=== PATIENT | female | born 1965 | race Two or more races ===

== ENCOUNTER 2019-05-03 19:43 | Inpatient (IN) | payer OTHER ==
[~2019-05-03] VITALS: Ht 154.9 cm; Wt 68.6 kg
[2019-05-03] MEDS ORDERED: ASPIRIN 81 MG TAB.CHEW PO ONE (20:00)
[2019-05-03] MEDS ORDERED: ASPIRIN 81 MG TAB.CHEW ONE (20:18)
[2019-05-03 20:19] LABS: BASOPHILS % (AUTO) 0.1 % (0.0-2.0); HEMATOCRIT 29.5 % (31.2-41.9); HEMOGLOBIN 9.4 g/dL (10.9-14.3); LYMPHOCYTES # (AUTO) 0.5 K/uL (20.0-40.0); LYMPHOCYTES % (AUTO) 4.5 % (20.5-51.5); MEAN CORPUSCULAR HEMOGLOBIN 25.5 uug (24.7-32.8); MEAN CORPUSCULAR HGB CONC 32 g/dL (32.3-35.6); MEAN CORPUSCULAR VOLUME 80.4 fL (75.5-95.3); MONOCYTES # (AUTO) 0.6 K/uL (2.0-10.0); MONOCYTES % (AUTO) 5.3 % (0.0-11.0); NEUTROPHILS # (AUTO) 9.3 K/uL (1.8-8.9); NEUTROPHILS % (AUTO) 90.1 % (38.5-71.5); PLATELET COUNT (AUTO) 131 K/uL (179-408); RED BLOOD CELL COUNT(AUTO) 3.68 MIL/uL (3.63-4.92); WHITE BLOOD COUNT (AUTO) 10.3 K/uL (3.8-11.8)
[2019-05-03 20:30] LABS: CREATININE 0.6 mg/dL (0.6-1.3); POTASSIUM 3.9 mmol/L (3.5-5.1)
[2019-05-03 20:42] LABS: BILIRUBIN,DIRECT 0.1 mg/dL (0.0-0.2); BILIRUBIN,TOTAL 0.5 mg/dL (0.2-1.0); TOTAL PROTEIN, SERUM 4.7 g/dL (6.4-8.2)
[2019-05-03] MEDS ORDERED: IV NORMAL SALINE 1000 ML BAG IV ONE (22:00)
[2019-05-03 23:15] LABS: HEMATOCRIT 27.7 % (31.2-41.9); HEMOGLOBIN 8.8 g/dL (10.9-14.3)
[2019-05-03] MEDS ORDERED: ONDANSETRON 4 MG/2 ML VIAL IV ONE (23:30)
[2019-05-03] MEDS ORDERED: HYDROMORPHONE 1 MG/1 ML DISP.SYRIN IV ONE (23:30)
[2019-05-03] MEDS ORDERED: HYDROMORPHONE 1 MG/1 ML DISP.SYRIN ONE (23:31)
[2019-05-03] MEDS ORDERED: ONDANSETRON 4 MG/2 ML VIAL ONE (23:31)
[2019-05-04] MEDS ORDERED: ZOLPIDEM 5 MG TABLET PO PRN (01:00)
[2019-05-04] MEDS ORDERED: Z GUARD REMEDY PASTE 57 GM TUBE TOP PRN (01:00)
[2019-05-04] MEDS ORDERED: MAGNESIUM HYDROXIDE 30 ML LIQUID UDC PO PRN (01:00)
[2019-05-04] MEDS ORDERED: IV NS 1000 ML 1,000 ML IV PRN (01:00)
[2019-05-04 01:10] VITALS: BP 99/56
[2019-05-04] MEDS: HYDROCODONE/APAP 5-325MG TABLET PO PRN ×3 (02:15→21:44)
[2019-05-04 04:00] VITALS: BP 90/46
[2019-05-04 06:20] LABS: HEMATOCRIT 24.5 % (31.2-41.9); HEMOGLOBIN 7.8 g/dL (10.9-14.3); LYMPHOCYTES # (AUTO) 0.5 K/uL (20.0-40.0); LYMPHOCYTES % (AUTO) 5.8 % (20.5-51.5); MEAN CORPUSCULAR HEMOGLOBIN 25.1 uug (24.7-32.8); MEAN CORPUSCULAR HGB CONC 32 g/dL (32.3-35.6); MEAN CORPUSCULAR VOLUME 78.9 fL (75.5-95.3); MONOCYTES # (AUTO) 0.7 K/uL (2.0-10.0); NEUTROPHILS # (AUTO) 7.5 K/uL (1.8-8.9); NEUTROPHILS % (AUTO) 86.2 % (38.5-71.5); PLATELET COUNT (AUTO) 137 K/uL (179-408); RED BLOOD CELL COUNT(AUTO) 3.11 MIL/uL (3.63-4.92); WHITE BLOOD COUNT (AUTO) 8.7 K/uL (3.8-11.8)
[2019-05-04 06:57] LABS: CREATININE 0.7 mg/dL (0.6-1.3); PHOSPHOROUS 3.9 mg/dL (2.5-4.9); POTASSIUM 3.8 mmol/L (3.5-5.1)
[2019-05-04 07:04] LABS: MAGNESIUM 1.2 mg/dL (1.8-2.4)
[2019-05-04] MEDS: MAGNESIUM SULFATE/D5W 100 ML IV SCH ×6 (08:29→20:59)
[2019-05-04 12:03] VITALS: BP 86/49
[2019-05-04] MEDS: ACETAMINOPHEN 325 MG TABLET PO PRN ×2 (12:34→18:41)
[2019-05-04] MEDS ORDERED: POTASSIUM CHLORIDE 20 MEQ POWDER PACKET PO ONE (15:30)
[2019-05-04] MEDS ORDERED: MAGNESIUM SULFATE/D5W 100 ML IV SCH (15:30)
[2019-05-04 16:09] VITALS: BP 89/45
[2019-05-04] MEDS: CEFTRIAXONE 1 G in IV DEXTROSE 5% 50 ML IV SCH (16:37)
[2019-05-04] MEDS: ONDANSETRON 4 MG/2 ML VIAL IV PRN (18:41)
[2019-05-04 19:54] VITALS: BP 92/47
[2019-05-04 22:29] VITALS: BP 91/41
[2019-05-05] VITALS (13 sets, daily range): BP systolic 83–104; BP diastolic 41–56
[2019-05-05] MEDS: ACETAMINOPHEN 325 MG TABLET PO PRN ×2 (00:39→09:08)
[2019-05-05] MEDS: ONDANSETRON 4 MG/2 ML VIAL IV PRN ×2 (00:40→22:40)
[2019-05-05 02:02] LABS: HEMATOCRIT 21.5 % (31.2-41.9)
[2019-05-05 02:08] LABS: HEMOGLOBIN 6.8 g/dL (10.9-14.3)
[2019-05-05] MEDS ORDERED: IV NORMAL SALINE 500 ML IV ONE (02:30)
[2019-05-05] MEDS ORDERED: ACETAMINOPHEN 325 MG TABLET PO PRN (10:00)
[2019-05-05 15:24] LABS: BASOPHILS # (AUTO) 0.1 K/uL (0.0-8.0); BASOPHILS % (AUTO) 0.7 % (0.0-2.0); EOSINOPHILS # (AUTO) 0.1 K/uL (0.0-0.7); EOSINOPHILS % (AUTO) 1.2 % (0.0-7.0); HEMATOCRIT 25.6 % (31.2-41.9); HEMOGLOBIN 8.3 g/dL (10.9-14.3); LYMPHOCYTES # (AUTO) 1.2 K/uL (20.0-40.0); LYMPHOCYTES % (AUTO) 13.8 % (20.5-51.5); MEAN CORPUSCULAR HEMOGLOBIN 26.5 uug (24.7-32.8); MEAN CORPUSCULAR HGB CONC 32 g/dL (32.3-35.6); MEAN CORPUSCULAR VOLUME 81.9 fL (75.5-95.3); MONOCYTES # (AUTO) 0.5 K/uL (2.0-10.0); MONOCYTES % (AUTO) 5.3 % (0.0-11.0); NEUTROPHILS # (AUTO) 6.9 K/uL (1.8-8.9); PLATELET COUNT (AUTO) 126 K/uL (179-408); RED BLOOD CELL COUNT(AUTO) 3.12 MIL/uL (3.63-4.92); WHITE BLOOD COUNT (AUTO) 8.7 K/uL (3.8-11.8)
[2019-05-05 15:37] LABS: BILIRUBIN,TOTAL 0.9 mg/dL (0.2-1.0); CREATININE 0.5 mg/dL (0.6-1.3); POTASSIUM 3.2 mmol/L (3.5-5.1); TOTAL PROTEIN, SERUM 4.8 g/dL (6.4-8.2)
[2019-05-05] MEDS: HYDROCODONE/APAP 5-325MG TABLET PO PRN (16:46)
[2019-05-05] MEDS: CEFTRIAXONE 1 G in IV DEXTROSE 5% 50 ML IV SCH (17:00)
[2019-05-05] MEDS ORDERED: POTASSIUM CHLORIDE 20 MEQ TAB.PRT.SR PO ONE (19:00)
[2019-05-06] VITALS: BP 92/45
[2019-05-06 04:00] VITALS: BP 82/44
[2019-05-06] MEDS: HYDROCODONE/APAP 5-325MG TABLET PO PRN ×2 (04:43→10:59)
[2019-05-06 06:00] VITALS: BP 92/46
[2019-05-06 06:27] LABS: BASOPHILS % (AUTO) 0.7 % (0.0-2.0); EOSINOPHILS # (AUTO) 0.2 K/uL (0.0-0.7); EOSINOPHILS % (AUTO) 2.6 % (0.0-7.0); HEMATOCRIT 24.7 % (31.2-41.9); HEMOGLOBIN 8.1 g/dL (10.9-14.3); LYMPHOCYTES # (AUTO) 1.7 K/uL (20.0-40.0); LYMPHOCYTES % (AUTO) 23.7 % (20.5-51.5); MEAN CORPUSCULAR HEMOGLOBIN 26.7 uug (24.7-32.8); MEAN CORPUSCULAR HGB CONC 33 g/dL (32.3-35.6); MONOCYTES # (AUTO) 0.5 K/uL (2.0-10.0); NEUTROPHILS # (AUTO) 4.7 K/uL (1.8-8.9); PLATELET COUNT (AUTO) 126 K/uL (179-408); RED BLOOD CELL COUNT(AUTO) 3.05 MIL/uL (3.63-4.92); WHITE BLOOD COUNT (AUTO) 7.1 K/uL (3.8-11.8)
[2019-05-06 06:36] LABS: CREATININE 0.5 mg/dL (0.6-1.3); MAGNESIUM 1.8 mg/dL (1.8-2.4); POTASSIUM 3.5 mmol/L (3.5-5.1)
[2019-05-06 12:12] VITALS: BP 94/53
[2019-05-06] MEDS: ONDANSETRON 4 MG/2 ML VIAL IV PRN (15:02)
[2019-05-06 15:25] VITALS: BP 100/47
[2019-05-06] MEDS ORDERED: NEUTRA PHOS PACKET PO ONE (16:00)
[2019-05-06] MEDS: CEFTRIAXONE 1 G in IV DEXTROSE 5% 50 ML IV SCH (17:00)
== END 2019-05-06 18:30 | disposition home or self-care (01) | DRG 663 ==
LOC: ER 19:47 → TELE3 05-04 00:42
PROVIDERS: ADMIT Nurse Practitioner Acute Care; ATTEND Internal Medicine
PROC: 30233N1 Transfusion of Nonautologous Red Blood Cells into Peripheral Vein, Percutaneous Approach (ICD-10-PCS; principal; 2019-05-04)
DX: D50.9 Iron deficiency anemia, unspecified (principal); I27.20 Pulmonary hypertension, unspecified; E83.42 Hypomagnesemia; I97.191 Other postprocedural cardiac functional disturbances following other surgery; I48.92 Unspecified atrial flutter; I49.9 Cardiac arrhythmia, unspecified; R94.31 Abnormal electrocardiogram [ECG] [EKG]; I95.1 Orthostatic hypotension
CPT/HCPCS: 36415; 70030-TC; 71045; 83550; 83735; 84100; 85018; 85025; 85730; 86850; 86900; 86901; 86920; 93005; 93307; A4663; G0378; J0696; J1170; J2405; J3475; J3490; J7030; J7040; J7050; J7060; P9016-BL; P9021